=== PATIENT | male | born 1945 | race Caucasian/White ===

== ENCOUNTER 2020-04-21 03:44 | Emergency (ER) | payer OTHER, MEDICARE ==
[~2020-04-21] VITALS: Ht 175.3 cm; Wt 99.8 kg
[2020-04-21 03:55] VITALS: BP_SYST 154
--- NOTE | 2020-04-21 03:55 | NUR ---
Placed in room 8 . Placed on teletypesetter monitor, blood pressure machine and pulse oximeter. To gown for exam. Side rails up. Report given to Torie PICHARDO.
--- NOTE | 2020-04-21 03:59 | NUR ---
Note leonard in ED - 04/21/20 at 0359 by AYAKA Placed in room 8 . Placed on mechanics handyman, blood pressure machine and pulse oximeter. To gown for exam. Side rails up. Report given to Torie PICHARDO.
--- NOTE | 2020-04-21 04:00 | NUR ---
ER at bedside examining patient.
[2020-04-21] MEDS ORDERED: methylPREDNISolone SOD SUCC/PF 62.5 MG/ML VIAL IM ONE (04:15)
[2020-04-21] MEDS ORDERED: DIPHENHYDRAMINE INJ 50 MG/ML VIAL IM ONE (04:15)
--- NOTE | 2020-04-21 04:20 | NUR ---
PT BIB SON C/O SWELLING TO MOUTH,TONGUE AND NECK AREA SINCE 6PM.DENIES SOB, DIFFICULTY SWALLOWING,CP,ABD PAIN, N/V. PT IS AAOX4, V/S STABLE. WILL CONTINUE TO MONITOR
--- NOTE | 2020-04-21 04:25 | NUR ---
# 20 gauge angiocath placed to RT WRIST. Use of asceptic technique. Opsite placed over site. Blood return noted. Blood for lab drawn from site. Flushed with 10 cc of normal saline. No evidence of infiltration noted. Patient tolerated well.
[2020-04-21 04:41] LABS: BASOPHILS # (AUTO) 0.1 K/uL (0.0-0.2); BASOPHILS % (AUTO) 0.8 % (0.0-2.0); EOSINOPHILS # (AUTO) 0.2 K/uL (0.0-0.4); EOSINOPHILS % (AUTO) 2.4 % (0.0-4.0); HEMATOCRIT 44.6 % (36-54); HEMOGLOBIN 14.8 g/dL (14.0-18.0); LYMPHOCYTES # (AUTO) 1.3 K/uL (1.0-5.5); MEAN CORPUSCULAR HEMOGLOBIN 30 pg (27-31); MEAN CORPUSCULAR HGB CONC 33 % (32-36); MEAN CORPUSCULAR VOLUME 89 fL (79.0-98.0); MONOCYTES # (AUTO) 0.9 K/uL (0.0-1.0); MONOCYTES % (AUTO) 9.1 % (1.7-9.3); NEUTROPHILS # (AUTO) 7.6 K/uL (1.8-7.7); NEUTROPHILS % (AUTO) 74.7 % (40.0-70.0); PLATELET COUNT (AUTO) 237 K/uL (130-430); RED BLOOD CELL COUNT(AUTO) 5.03 MIL/uL (4.2-6.2); RED CELL DISTRIBUTION WIDTH 13.9 % (9.0-15.0); WHITE BLOOD COUNT (AUTO) 10.1 K/uL (4.8-10.8)
[2020-04-21] MEDS ORDERED: DIPHENHYDRAMINE INJ 50 MG/ML VIAL IVP ONE (04:45)
[2020-04-21] MEDS ORDERED: methylPREDNISolone SOD SUCC/PF 62.5 MG/ML VIAL IVP ONE (04:45)
[2020-04-21 04:53] LABS: ANION GAP 6 (5-15); CHLORIDE 105 mmol/L (98-107); CREATININE 0.92 mg/dL (0.55-1.30); GLUCOSE 99 mg/dL (70-99); POTASSIUM 3.8 mmol/L (3.5-5.1); SODIUM SERUM 138 mmol/L (136-145); UREA NITROGEN, BLOOD 19 mg/dL (8-21)
[2020-04-21 04:58] LABS: ALANINE AMINOTRANSFERASE 26 U/L (12-78); ALBUMIN 3.9 g/dL (3.4-4.8); ASPARTATE AMINOTRANSFERASE 19 U/L (10-37); TOTAL BILIRUBIN 0.6 mg/dL (0.0-1.0)
--- NOTE | 2020-04-21 06:00 | NUR ---
PT REPORTS IMPROVEMENT IN SWELLING AND FEELS BETTER.
[2020-04-21 06:17] VITALS: BP_SYST 147
--- NOTE | 2020-04-21 06:17 | NUR ---
Patient given written and verbal discharge instructions and verbalizes understanding. ER MD discussed with patient the results and treatment provided. Patient in stable condition. ID arm band removed. IV catheter removed intact and dressing applied, no active bleeding. Rx of BENADRYL AND PREDNISONE given. Patient educated on pain management and to follow up with PMD. Pain Scale 0/10. Opportunity for questions provided and answered. Medication side effect fact sheet provided.
== END 2020-04-21 06:17 | disposition home or self-care (01) ==
LOC: SED 03:44
DX: T78.2XXA Anaphylactic shock, unspecified, initial encounter (principal); X58.XXXA Exposure to other specified factors, initial encounter
CPT/HCPCS: 36415; 80053; 85025; 96374; 96375; 99284; J1200; J2930

== ENCOUNTER 2021-09-05 06:30 | Day surgery (SDC) | payer OTHER, MEDICARE, SELFPAY ==
[~2021-09-05] VITALS: Ht 175.3 cm; Wt 99.8 kg
[2021-09-05] MEDS ORDERED: fentaNYL CITRATE/PF 100 MCG/2 ML AMP ONE (07:07)
[2021-09-05] MEDS: MIDAZOLAM HCL 5 MG/5 ML VIAL ONE ×2 (08:29→08:40)
[2021-09-05 13:24] VITALS: BP_SYST 148
== END 2021-09-05 09:45 | disposition home or self-care (01) ==
LOC: SMU 06:30 → SDS 06:30
PROVIDERS: ATTEND Surgery
DX: Z12.11 Encounter for screening for malignant neoplasm of colon (principal); K64.8 Other hemorrhoids
CPT/HCPCS: 36415; 87426; G0121; G0378; J2250; J3010; 45378